=== PATIENT | female | born 1965 | race Caucasian/White ===

== ENCOUNTER 2016-11-20 16:18 | Emergency (ER) | payer OTHER ==
--- NOTE | ~2016-11-20 | CR230 ---
[facility] A Service of [facility] RADIOLOGY TEXT RESULTS PATIENT: ORALIA BRENNAN LOCATION: [facility] : 69 UNIT #: [id number] AGE: [address]: Leonela Gregg SEX: F ORDER DR: [id number] [facility] [address] [place], [place] [address] [id number] E MR#: [id number] Acc #: [id number] NAME: ORALIA BRENNAN : 1965 SEX: F STUDY DATE/TIME: 11/20/2016 19:03 UNIT: [facility] ROOM: STUDY DESCRIPTION: CR Shoulder Min 2 View Rt Attending Physician: Leonela Gregg P.A.-C. Ordering Physician: Leonela Gregg P.A.-C. Primary Care Physician: Monae Esposito M.D. MEDICAL IMAGING REPORT This report is preliminary unless electronic signature is present EXAM Right shoulder 3 views HISTORY Shoulder pain for 3 weeks after injury. FINDINGS AP view with internal and external rotation of the shoulder girdle shows satisfactory relationship of the humeral head and glenoid fossa. The joint space is normal. There is no identifiable fracture or dislocation or bony destructive process about the shoulder girdle anatomy. The acromioclavicular joint is normal. There is no radiopaque foreign body in the region. IMPRESSION Normal shoulder. Dictated by... Jose Hurd M.D. THIS IS AN ELECTRONICALLY VERIFIED REPORT Jose Hurd M.D. at 11/21/2016 3:50 PM REJI/genevieve TD: 11/21/2016 11:15 JOB #: [id number] MEDICAL IMAGING REPORT Page 1 of 1 COPY
[~2016-11-20 16:18] MED LIST: ALBUTEROL MININEB NEB; ALBUTEROL S2 MG/5 ML PO; ALBUTEROL17 GM INH; AMITRYPTYLINE PO; BENZONATATE PO; CLARITIN R10 MG REDI; CLARITIN10 M1 PO; DELTASONE20 MG PO; FLEXERIL10 MG PO; GABAPENTIN300 MG PO; IBUPROFEN PO; IBUPROFEN800 MG PO; KEFLEX500 MG PO; METHOCARBAMOL500 MG PO; MS CONTIN15 M1 PO; NEURONTIN800 MG PO; OPCON-A OU; OXYCONTIN20 MG PO; PERCOCET 10-651 EACH PO; PERCOCET 10/31 UDTA1 PO; PERCOCET 10/3251 TAB PO; PREDNISONE5 M1 PO; PREDNISONE50 MG PO; PRILOSEC40 MG PO; PRO-AIR; ROBAXIN 750750 M1 PO; VOLTAREN50 MG PO; VOLTAREN75 MG PO
== END 2016-11-20 20:02 | disposition home or self-care (01) ==
LOC: CED 16:18 → CFTX 16:18
DX: L02.413 Cutaneous abscess of right upper limb (principal); F17.210 Nicotine dependence, cigarettes, uncomplicated; Z88.2 Allergy status to sulfonamides
CPT/HCPCS: 10060; 73030; 96372; 99283; J1885

== ENCOUNTER 2016-12-03 10:38 | Emergency (ER) | payer OTHER ==
[~2016-12-03] VITALS: Ht 167.6 cm; Wt 92.1 kg
--- NOTE | ~2016-12-03 | CT2 ---
[facility] A Service of [facility] RADIOLOGY TEXT RESULTS PATIENT: ORALIA BRENNAN LOCATION: [facility] : 69 UNIT #: [id number] AGE: [address]: Aníbal Garcia MD SEX: F ORDER DR: [id number] [facility] [address] [place], [place] [address] [id number] E MR#: [id number] Acc #: [id number] NAME: ORALIA BRENNAN : 1965 SEX: F STUDY DATE/TIME: 12/03/2016 13:24 UNIT: [facility] ROOM: STUDY DESCRIPTION: CT Abd and Pelv W Cont Attending Physician: Aníbal Garcia M.D. Ordering Physician: Aníbal Garcia M.D. Primary Care Physician: Monae Esposito M.D. MEDICAL IMAGING REPORT This report is preliminary unless electronic signature is present EXAM CT abdomen and pelvis with contrast. HISTORY Right lower quadrant abdominal pain since last night. Smoker. History of chronic back pain, asthma. Prior back surgery. COMPARISON CT of abdomen and pelvis, 06/30/2015. TECHNIQUE This CT exam was performed with one or more of the following radiation dose reduction techniques: automatic exposure control, adjustment of mA and/or kV according to patient size, and iterative reconstruction. FINDINGS Axial images performed through the abdomen and pelvis following IV and oral contrast. Multiplanar reconstructed images reviewed at a workstation. ABDOMEN: Lung bases demonstrate right lower lobe granuloma. Small amount of lingular scarring or fibrosis. The liver, spleen, and gallbladder unremarkable. Pancreas unremarkable. Both adrenal glands appear diffusely prominent suggesting adrenal hyperplasia. There is small 4 mm nonobstructing renal stones bilaterally. GI tract to include the appendix unremarkable. Retroperitoneum unremarkable. PELVIS: Bladder, uterus and adnexa unremarkable. Postoperative changes noted from L5-S1 discectomy and posterior spinal fusion procedure. Patient is also status post ventral hernia repair. IMPRESSION 1. No acute intraabdominal or intrapelvic pathology identified. There are 4 mm nonobstructing bilateral renal stones. [facility] A Service of [facility] RADIOLOGY TEXT RESULTS PATIENT: ORALIA BRENNAN LOCATION: [facility] #: [id number] : 69 UNIT #: [id number] AGE: [address]: Aníbal Garcia MD SEX: F ORDER DR: 2. Postsurgical changes L5-S1 discectomy and posterior spinal fusion as well as previous ventral hernia repair. No evidence of recurrent hernia. Dictated by... Dex Do M.D. THIS IS AN ELECTRONICALLY VERIFIED REPORT Dex Do M.D. at 12/03/2016 9:36 PM [place] TD: 12/03/2016 20:44 JOB #: [id number] MEDICAL IMAGING REPORT Page 1 of 1 COPY
[2016-12-03 11:03] LABS: BASOPHIL# 0.1 X10e3 (0-0.3); BASOPHIL% 0.9 % (0-2.5); DIFF IND NO; EOSINOPHIL# 0.3 X10e3 (0-0.7); EOSINOPHIL% 3.8 % (0.0-7.0); HEMATOCRIT 43.2 % (35.0-45.0); HEMOGLOBIN 14.5 gm/dL (12.0-16.0); LYMPHOCYTE# 2.3 X10e3 (1.0-3.5); LYMPHOCYTE% 26.1 % (17.0-45.0); MEAN CORPUSCULAR HEMOGLOBIN 29.5 PG (28-34); MEAN CORPUSCULAR HGB CONC 33.5 g/dL (30-36); MEAN PLATELET VOLUME 7.7 FL (6.5-11.5); MONOCYTE# 0.6 X10e3 (0-1.0); MONOCYTE% 6.4 % (3.0-12.0); NEUTROPHIL# 5.6 X10e3 (1.5-7.1); NEUTROPHIL% 62.8 % (40-75); PLATELET COUNT 201 X10e3 (140-420); RED BLOOD COUNT 4.91 X10e (3.90-5.30); RED CELL DISTRIBUTION WIDTH 13.3 % (11.0-15.5); WHITE BLOOD COUNT 8.9 X10e3 (4.0-10.5)
[2016-12-03 11:27] LABS: ALBUMIN SERUM 3.7 g/dL (3.5-5.0); BILIRUBIN, DIRECT 0.1 mg/dL (0.0-0.2); BILIRUBIN,INDIRECT 0.4 mg/dL (0.0-0.9); BILIRUBIN,TOTAL 0.5 mg/dL (0.2-2.0); BUN/CREATININE RATIO 17.5; CALCIUM SERUM 8.6 mg/dL (8.4-10.2); CREATININE SERUM 0.8 mg/dL (0.6-1.4); GLOM FILT RATE Estimated 87.3 mL/min (>60); POTASSIUM 3.2 mmol/L (3.5-5.1); PROTEIN TOTAL SERUM 6.8 g/dL (6.0-8.3)
[2016-12-03 12:13] LABS: URINE SOURCE CLEAN CATCH
[2016-12-03 12:18] LABS: URINE APPEARANCE CLOUDY; URINE BILIRUBIN NEG (NEG); URINE BLOOD 3+ (NEG); URINE COLOR YELLOW; URINE GLUCOSE NEG (NEG); URINE KETONE NEG (NEG); URINE LEUKOCYTE ESTERASE NEG (NEG); URINE NITRATE NEG (NEG); URINE PROTEIN NEG (NEG); URINE SPECIFIC GRAVITY 1.017 (1.003-1.035); URINE UROBILINOGEN 0.2 MG/DL (NEG)
[2016-12-03 12:21] LABS: CULTURE INDICATED? YES; URBCS1 AUWI 25-50 /[HPF] (0-2); URINE BACTERIA AUWI 1+ (NEGATIVE); URINE SQUAMOUS EPITHELIAL CELL OCC /[HPF]; UWBCS1 AUWI 0-2 (0-5)
[2016-12-03 12:41] LABS: AMPHETAMINE POS (NEG); BARBITURATES NEG (NEG); BENZODIAZEPINES NEG (NEG); COCAINE NEG (NEG); MARIJUANA NEG (NEG); OPIATES POS (NEG); TRICYCLIC ANTIDEPRESSANTS NEG (NEG); U METHADONE NEG (NEG)
[2016-12-04] MEDS ORDERED: FLEXERIL10 MG PO (07:43)
[2016-12-04] MEDS ORDERED: NAPROSYN500 MG PO (07:44)
[2016-12-04] MEDS ORDERED: GABAPENTIN800 MG PO (07:46)
[2016-12-04] MEDS ORDERED: DICYCLOMINE HCL20 MG PO (07:47)
[2016-12-04] MEDS ORDERED: ALLERGY MED (07:47)
== END 2016-12-03 15:30 | disposition home or self-care (01) ==
LOC: CED 10:38
PROVIDERS: Emergency Medicine
DX: S39.012A Strain of muscle, fascia and tendon of lower back, initial encounter (principal); R10.9 Unspecified abdominal pain; Z87.891 Personal history of nicotine dependence; X58.XXXA Exposure to other specified factors, initial encounter
CPT/HCPCS: 74177; 80048; 80076; 80307; 81003; 82150; 83690; 85025; 87086; 96361; 96374; 96375; 99284; J1885; J2270; J2550; Q9967

== ENCOUNTER 2016-12-04 07:34 | Emergency (ER) | payer OTHER ==
--- NOTE | ~2016-12-04 | CR7 ---
[facility] A Service [facility] RADIOLOGY TEXT RESULTS PATIENT: ORALIA BRENNAN LOCATION: [facility] : 69 UNIT #: [id number] AGE: [address]: Alejandra Guzman MD SEX: F ORDER DR: [id number] [place] [id number] E MR#: [id number] Acc #: [id number] NAME: ORALIA BRENNAN : 1965 SEX: F STUDY DATE/TIME: 12/04/2016 7:45 UNIT: [facility] ROOM: STUDY DESCRIPTION: CR Abdomen Single AP View Attending Physician: Alejandra Guzman M.D. Ordering Physician: Alejandra Guzman M.D. Primary Care Physician: Monae Esposito M.D. MEDICAL IMAGING REPORT This report is preliminary unless electronic signature is present. EXAM Abdomen single view AP HISTORY Constipation with right flank pain radiating to abdomen since yesterday. No injury. COMPARISON Abdomen and pelvis CT scan is from 12/03/2016. FINDINGS There is oral contrast media in the colon from recent CT scanning. There is hardware to the lumbosacral spine with the right side screw being fractured. Patient has likely also had a hernia repair. There is some air in small bowel loops but no distended small bowel loops are seen. The supine view shows nothing to suggest obstruction. Please refer back to the CT scan. IMPRESSION The oral contrast from yesterday's CT is now in the colon. There is a small amount of small bowel air but there is nothing to suggest bowel obstruction on these supine images. The patient has apparently had a previous hernia repair. There has also been prior surgery to the lumbosacral spine and it appears that the right-sided fixation screw is fractured. Dictated by... Katie Mojica M.D. THIS IS AN ELECTRONICALLY VERIFIED REPORT Katie Mojica M.D. at 12/05/2016 7:51 AM MAYLIN/ricahrd [facility] A Service [facility] RADIOLOGY TEXT RESULTS PATIENT: ORALIA BRENNAN LOCATION: [facility] : 69 UNIT #: [id number] AGE: [address]: Alejandra Guzman MD SEX: F ORDER DR: TD: 12/04/2016 16:41 JOB #: [id number] MEDICAL IMAGING REPORT Page 1 of 1
[2016-12-04] MEDS ORDERED: FLEXERIL10 MG PO (07:43)
[2016-12-04] MEDS ORDERED: NAPROSYN500 MG PO (07:44)
[2016-12-04] MEDS ORDERED: GABAPENTIN800 MG PO (07:46)
[2016-12-04] MEDS ORDERED: ALLERGY MED (07:47)
[2016-12-04] MEDS ORDERED: DICYCLOMINE HCL20 MG PO (07:47)
== END 2016-12-04 09:30 | disposition home or self-care (01) ==
LOC: SED 07:34
DX: K59.00 Constipation, unspecified (principal); K58.9 Irritable bowel syndrome, unspecified; R56.9 Unspecified convulsions; F17.200 Nicotine dependence, unspecified, uncomplicated; Z88.2 Allergy status to sulfonamides; Z79.899 Other long term (current) drug therapy; Z90.710 Acquired absence of both cervix and uterus
CPT/HCPCS: 74000; 99284